=== PATIENT | female | born 2000 | race Caucasian/White ===

== ENCOUNTER 2023-09-15 02:18 | Emergency (ER) | payer OTHER, SELFPAY ==
--- NOTE | ~2023-09-15 | XR_ITS ---
EXAMINATION: XR WRIST, RIGHT CLINICAL INFORMATION: Injury COMPARISON: None available. TECHNIQUE: PA, lateral, and oblique views of the right wrist. FINDINGS: Osseous alignment is anatomic. The lunate and triquetrum appear fused, in keeping with lunotriquetral coalition. No acute fracture is seen. No significant focal soft tissue abnormality identified. XR/XR wrist RT min 3V IMPRESSION: No acute findings identified. Lunotriquetral coalition.
[2023-09-15 03:36] VITALS: BP 104/70; PULSE 81; RESP 16; TEMP 36.7; O2SAT 100; BMI 31.9
[2023-09-15] MEDS: Ketorolac Tromethamine 15 MG/ML VIAL IM (07:01)
[2023-09-15 07:47] VITALS: BP 81/56; PULSE 66; RESP 16; TEMP 36.8; O2SAT 100
--- NOTE | 2023-09-15 07:49 | ED_ITS ---
HPI - Extremity Problem General Chief complaint: Extremity Injury, Upper Stated complaint: fall right wrist and hand pain and numbness Time Seen by Provider: 09/15/23 06:44 Source: patient and other (Friend) Mode of arrival: ambulatory Limitations: no limitations History of Present Illness HPI Narrative: This is a 23-year-old female history of obesity, chronic joint pain, Rossi- Danlos, endometriosis presenting to the emergency department with complaints of right-sided wrist pain, patient reports she fell in a mesh pit last night at approximately 19:15, she landed onto her right wrist. When she fell she did not hit her head or lose consciousness. She reports since then she has been having pain and swelling only to her right wrist. Pain is worse with movement better at rest. Intermittent tingling and numbness. However not constant. Patient denies chest pain, shortness of breath, visual disturbances, dizziness, headache, nausea, vomiting. Patient not on blood thinner Related Data Allergies Allergy/AdvReac Type Severity Reaction Status Date / Time cefprozil Allergy Rash Verified 09/15/23 03:39 Review of Systems Review of Systems: Yes all other systems are reviewed and are negative [facility] Past Medical History Attestation statement: The following information was validated with the patient. Source: old records reviewed and nursing notes reviewed Social History Social History Advance Directives: No Advance Directives Information Provided: No Physical Exam Vital Signs: Vital Signs: Last Vital Signs Temp 98.2 F 09/15/23 07:47 Pulse 66 09/15/23 07:47 Resp 16 09/15/23 07:47 BP 81/56 L 09/15/23 07:47 Pulse Ox 100 09/15/23 07:47 O2 Del Method Room Air 09/15/23 07:47 BMI result Body Mass Index 31.9 vss Appearance: Alert.? Oriented X3.? No acute distress.? Head: Normocephalic, atraumatic, no step-offs or deformities Eyes: Pupils equal, round and reactive to light.? Neck: Normal inspection.? Neck supple.? CVS: ? Pulses normal.? Respiratory: No respiratory distress.? Skin: Skin warm and dry.? Normal skin color.? Normal skin turgor.? Extremities: 5/5 strength to bilateral upper and lower extremities 2+ radial pulses equal bilateral. Normal sensation distally. Capillary refill to bilateral upper extremity digits less than 2 seconds. No wrist drop. Patient reports discomfort with range of motion of right wrist however patient does have full range of motion. Valgus and varus movements make pain worse. No appreciated swelling. Normal skin color. Warm extremities bilaterally. 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 Back: No midline tenderness, no C-spine tenderness, full range of motion, no CVA tenderness bilaterally Neuro: Oriented X 3.? No motor deficit.? No sensory deficit. CN 2-12 intact ambulating with steady gait normal coordination Course Reevaluation(s) Reevaluation #1: X-ray of wrist no acute findings. 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 Patient was placed in a right Velcro volar splint. Educated to t ehver this off at night. Educated on rice. Will discharge home with Toradol. I gave her orthopedic follow-up if needed. Time: 07:56 Medications Administered Discontinued Medications Generic Name Dose Route Start Last Admin Trade Name Nicoq PRN Reason Stop Dose Admin Ketorolac Tromethamine 15 mg 09/15/23 06:47 09/15/23 07:01 Ketorolac Tromethamine 15 Mg/Ml Vial IM 09/15/23 06:48 15 mg ONCE ONE Administration Medical Decision Making Medical Decision Making [facility] Narrative: 0750 23-year-old female presents with right wrist pain after sustaining a Foosh injury last night around 7:15 pm Physical exam 5/5 strength to bilateral upper and lower extremities 2+ radial pulses equal bilateral. Normal sensation distally. Capillary refill to bilateral upper extremity digits less than 2 seconds. No wrist drop. Patient reports discomfort with range of motion of right wrist however patient does have full range of motion. Valgus and varus movements make pain worse. No appreciated swelling. Normal skin color. Warm extremities bilaterally. 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 History and physical exam concerning for sprain or strain versus contusion. Unlikely fracture, dislocation, neurovascular compromise, threat to limb. This time x-ray ordered. Differential Diagnosis Differential Diagnoses: The differential diagnosis associated with the presentation includes History and physical exam concerning for sprain or strain versus contusion. Unlikely fracture, dislocation, neurovascular compromise, threat to limb. Admission/Observation Consideration of admission/observation: Escalation of care including admission/observation considered Unlikely Independent Interpretation I performed an independent interpretation of an: Plain X-Ray ( XR/XR wrist RT min 3V IMPRESSION: No acute findings identified. Lunotriquetral coalition.) Radiology Impression Discussion of test interpretation with radiology: I have reviewed the radiologist's reading. Prescription Management I considered prescription management with: Pain Medication (Toradol) Chronic Conditions Patient?s care impacted by: Other (Rossi stones, endometriosis, chronic joint pain) Discharge Plan Discharge Clinical Impression: Acute pain of right wrist Patient Disposition: Home, Self-Care Instructions: Wrist Injury (ED), R.I.C.E. Treatment (ED) Additional Instructions: Take your medications as prescribed. If you were prescribed antibiotics today, it is important that you take your medication to their entirety, do not skip any doses, do not finish them early. Follow-up with your primary care provider this week. Return to the emergency department with new or worsening symptoms. Such as fevers, chills, chest pain, shortness of breath, nausea, vomiting, dizziness, headache, vision changes, lethargy In case of emergency call 911 Follow up with the orthopedic team if needed. Information below Toradol has been sent to your pharmacy, you tolerated this well in the department. Please take this as prescribed do not take this with ibuprofen, or other NSAIDs, do not mix this with alcohol. Side effects of this medication including increased risk for bleeding and possible kidney injury. Referrals: [facility] [Provider Group] - 1 week Physician,Celina J [Primary Care Provider] - 2 days Stand Alone Forms: Work/School Release Print Language: American
[2023-09-15 08:01] VITALS: BP 81/56; PULSE 66; RESP 16; TEMP 36.8; O2SAT 100
== END 2023-09-15 08:02 | disposition home or self-care (01) ==
PROVIDERS: Emergency Provider Emergency Medicine
DX: M25.531 Pain in right wrist (principal)
CPT/HCPCS: 73110; 96372; 99284; J1885

== ENCOUNTER 2023-10-01 08:42 | Outpatient (REF) | payer OTHER, SELFPAY | END 2023-10-01 08:43 | disposition home or self-care (01) | LOC: HO.HOSX 08:42 | PROVIDERS: Visit Provider Physician Assistant | DX: Z13.89 Encounter for screening for other disorder (principal) ==

== ENCOUNTER 2023-10-01 13:16 | Outpatient (AMB) | payer OTHER, SELFPAY ==
[2023-10-01 13:23] VITALS: BMI 31.9
--- NOTE | 2023-10-01 13:23 | A.OFFVIS_ITS ---
Vital Signs 10/01/23 13:23 Height 5 ft 3 in Weight 180 lb BMI 31.9 Intake Visit Reasons: N/P RT hand pain Intake Note: Dora is a 23 year old right hand dominant female who presents today as a new patient for a evaluation of her right hand pain, DOI 09/14/23. She informed me that she fell twice on the date of injury. Patient reports her hand is feeling a lot better from two weeks from the injury. Denies numbness and tingling. Allergies cefprozil Allergy (Verified 10/01/23 13:23) Rash HPI HPI N/P RT hand pain: Details: 23-year-old right hand dominant female who presents in the office today, as a new patient, for an evaluation of right hand/wrist pain. Patient presented to the ED on 09/15/2023 status post falling into a mesh pit on 09/14/2023 causing her to land on wrist. X-rays were obtained. Patient was placed in a Volar splin t. While in the office today the patient reports she fell twice the day of the injury, on 09/14/2023, which occurred minutes apart from each other. She reports her symptoms have improved from the injury. Denies numbness or tingling. Review of Systems Const All systems reviewed & are unremarkable except as noted in HPI and below Physical Exam Vital Signs: BMI result Body Mass Index 31.9 Const General: cooperative and no acute distress Orientation/consciousness: patient oriented x3 Resp Effort & Inspection: normal respiratory effort and able to speak in complete sentences Cardio Peripheral pulses: Peripheral pulses 2+ throughout Skin General skin exam: no rashes or lesions noted Neuro General: patient oriented x3 Extrem Other: Right hand/wrist: Normal to inspection. No ecchymosis, erythema, or edema. Able to perform full finger flexion, extension, abduction, adduction, finger cross, okay sign, and thumbs up without deficit. Able to make a closed fist. Slight pa in with ROM but is able to achieve full ROM. Sensation intact. Capillary refill is brisk. Radial pulse intact. Assessment & Plan Assessment & Plan (1) Right wrist sprain: Code(s): S63.501A - Unspecified sprain of right wrist, initial encounter Category: Medical Plan Ms. John is a 23-year-old right hand dominant female who presents in the office today, as a new patient, for an evaluation of right hand/wrist pain. Patient presented to the ED on 09/15/2023 status post falling into a mesh pit on 09/14/2023 causing her to land on wrist. X-rays were obtained. Patient was placed in a volar splint. While in the office today the patient reports she fell twice the day of the injury, on 09/14/2023, which occurred minutes apart from each other. She reports her symptoms have improved from the injury. Denies numbness or tingling. Patient was instructed to discontinue the use of the wrist splint at this time. A referral was placed for the patient to attend occupational therapy to work on ROM and strengthening. Follow up will be in 3 weeks, or sooner if needed. X-rays of the right wrist, obtained on 09/15/2023, revealed: Osseous alignment is anatomic. The lunate and triquetrum appear fused, in keeping with lunotriquetral coalition. No acute fracture is seen. No significant focal soft tissue abnormality identified. Orders: Orders OT Evaluation and Treatment Today S63.501A - Unspecified sprain of right wrist, initial encounter XR wrist RT w scaphoid Today M79.641 - Pain in right hand Patient Instructions: Scribed by Tiffany Robins medical consultant, for Brandy Asencio PA-C on 10/01/2023 at 2:00 pm, EST. Coding Level of Care Code New Pt Level 4 (21724) Diagnoses Right wrist sprain S63.501A
== END 2023-10-01 14:05 | disposition home or self-care (01) ==
PROVIDERS: Visit Provider Physician Assistant
DX: S63.501A Unspecified sprain of right wrist, initial encounter (principal)
CPT/HCPCS: 99203

== ENCOUNTER 2023-10-22 11:02 | Outpatient (AMB) | payer OTHER, SELFPAY ==
--- NOTE | 2023-10-22 11:15 | A.OFFVIS_ITS ---
Intake Visit Reasons: OV- RT hand pain-follow up 3 weeks Intake Note: Dora is a 23 year old right hand dominant female who presents today for a follow up of her right hand pain, DOI 09/14/23. She states she is doing better. She expresses no pain or discomfort with movement. Allergies cefprozil Allergy (Verified 10/01/23 13:23) Rash HPI HPI OV- RT hand pain-follow up 3 weeks: Details: 23-year-old right hand dominant female who presents in the office today for a follow up of a right wrist sprain. I last saw the patient in the office on 10/01/2023 when she was instructed to discontinue the wrist splint. She was also referred to OT to work on ROM and strengthening. While in the office today the patient reports she is doing better with no pain or discomfort with movement. Review of Systems Const All systems reviewed & are unremarkable except as noted in HPI and below Physical Exam Const General: cooperative, healthy appearing and no acute distress Resp Effort & Inspection: normal respiratory effort and able to speak in complete sentences Cardio Rate: regular rate Peripheral pulses: Peripheral pulses 2+ throughout GI Palpation (GI): Soft to palpation Skin Lesions: no lesions Rashes: no rashes Extrem Other: Right wrist: Normal to inspection. No ecchymosis, erythema, or edema. Able to perform full finger flexion, extension, abduction, adduction, finger cross, okay sign, and thumbs up without deficit. Able to make a closed fist. Sensation intact. Capillary refill is brisk. Radial pulse intact. Assessment & Plan Assessment & Plan (1) Right wrist sprain: Code(s): S63.501A - Unspecified sprain of right wrist, initial encounter Category: Medical Plan Ms. Gray is a 23-year-old right hand dominant female who presents in the o ice today for a follow up of a right wrist sprain. I last saw the patient in the office on 10/01/2023 when she was instructed to discontinue the wrist splint. She was also referred to OT to work on ROM and strengthening. While in the office today the patient reports she is doing better with no pain or discomfort with movement. Patient is not experiencing any residual deficits or pain. She may return back to normal activities as tolerated, using pain as her guide. Follow up will be PRN, or sooner if needed. Patient Instructions: Scribed by Tiffany Robins, biomedical engineering director, for Brandy Asencio PA-C on 10/22/2023 at 11:04 am, EST. Coding Level of Care Code Est Pt Level 3 (70549) Diagnoses Right wrist sprain S63.501A
== END 2023-10-22 11:20 | disposition home or self-care (01) ==
PROVIDERS: Visit Provider Physician Assistant
DX: S63.501A Unspecified sprain of right wrist, initial encounter (principal)
CPT/HCPCS: 99213

== ENCOUNTER → 2023-10-22 11:02 | Outpatient (BNVA) | payer OTHER, SELFPAY | PROVIDERS: Visit Provider Physician Assistant ==